=== PATIENT | female | born 1985 | race Caucasian/White ===

== ENCOUNTER 2016-09-19 10:33 | Emergency (ER) | payer OTHER ==
--- NOTE | 2016-09-19 11:01 | UC ---
Abdominal Pain Female HPI - HPI Summary HPI Summary: SUDDEN ONSET OF CRAMPY LOWER ABDOMINAL PAIN AND MILD NAUSEA THIS MORNING. WOKE HER FROM SLEEP. PAIN COMES IN WAVES. HAS HAD SEVERAL EPISODES OF LOOSE STOOLS THIS MORNING ASSOCIATED WITH THE PAIN. HAS H/O IBS BUT DID NOT EAT ANY TRIGGER FOODS. NO FEVER. LMP 2 WEEKS AGO WAS NORMAL. PT IS IN TEARS AND LEANING OVER HOLDING HER BELLY. - History of Current Complaint Chief Complaint: UCAbdominalPain Stated Complaint: ABDOMINAL PAIN Time Seen by Provider: 09/19/16 10:52 Hx Obtained From: Patient Hx Last Menstrual Period: 09/10/16 Onset/Duration: Sudden Onset, Lasting Hours, Still Present Timing: Intermittent Episodes Lasting: Severity Initially: Moderate Severity Currently: Moderate Pain Intensity: 8 Pain Scale Used: 0-10 Numeric Location: Suprapubic Radiates: No Character: Cramping Aggravating Factor(s): Nothing Alleviating Factor(s): Nothing Associated Signs and Symptoms: Positive: Nausea, Diarrhea. Negative: Back Pain , Constipation, Blood in Stool, Urinary Symptoms, Vaginal Bleeding, Vaginal Discharge, Vomiting Allergies/Adverse Reactions: Allergies Allergy/AdvReac Type Severity Reaction Status Date / Time Naproxen Allergy Rash Verified 09/19/16 10:39 minicycline Allergy joint Uncoded 09/19/16 10:38 swelling Home Medications: Home Medications Drospirenone-Ethinyl Estradiol [Ocella 3-0.03 mg] 09/19/16 [History] Levothyroxine TAB* [Synthorid 112 MCG TAB*] 112 mcg PO 0800 09/19/16 [History Confirmed 09/19/16] PMH/Surg Hx/FS Hx/Imm Hx Endocrine History: Hypothyroidism - Surgical History Surgical History: None - Family History Known Family History: Positive: Hypertension, Diabetes - Social History Alcohol Use: Rare Substance Use Type: None Smoking Status (MU): Never Smoked Tobacco Review of Systems Constitutional: Negative Respiratory: Negative Cardiovascular: Negative Gastrointestinal: Abdominal Pain, Diarrhea, Nausea Genitourinary: Negative All Other Systems Reviewed And Are Negative: Yes Physical Exam Triage Information Reviewed: Yes Appearance: Well-Nourished, Pain Distress - MODERATE. PT IN TEARS Vital Signs: Initial Vital Signs Temp 98.6 F 09/19/16 10:40 Pulse 93 09/19/16 10:40 Resp 22 07/30/17 10:40 BP 115/56 09/19/16 10:40 Pulse Ox 99 09/19/16 10:40 Vital Signs Reviewed: Yes Eyes: Positive: Conjunctiva Clear ENT: Positive: Hearing grossly normal Neck: Positive: Supple Respiratory Exam: Normal Cardiovascular Exam: Normal Abdomen Description: Positive: Soft, Other: - TENDER LOWER ABDOMEN. NO REBOUND, RIGIDITY OR GUARDING. Negative: CVA Tenderness (R), CVA Tenderness (L), Distended, Guarding Bowel Sounds: Positive: Present Musculoskeletal: Positive: No Edema Neurological: Positive: Alert Psychological: Positive: Age Appropriate Behavior Skin: Negative: rashes Diagnostics - Laboratory Diagnostic Studies Completed/Ordered: URINE DIP UNREMARKABLE. URINE HCG NEGATIVE Abd Pain Female Course/Dx - Differential Dx/Diagnosis Provider Diagnoses: LOWER ABDOMINAL PAIN - Physician Notification/Consults Discussed Care of Patient With: John Rodrigues - [place] [facility] [place] [facility] [place] Time Discussed With Above Provider: 11:10 Instructed by Provider To: Will See In ED Discharge - Discharge Plan Condition: Stable Disposition: AGAINST MEDICAL ADVICE Referrals: Ezra Lee MD [Primary Care Provider] -
[2016-09-19 11:15] VITALS: BP 129/78
== END 2016-09-19 11:11 | disposition left against medical advice (07) ==
LOC: UCEAST 10:33
DX: R10.30 Lower abdominal pain, unspecified (principal); Z32.02 Encounter for pregnancy test, result negative; E03.9 Hypothyroidism, unspecified; Z88.6 Allergy status to analgesic agent; Z88.3 Allergy status to other anti-infective agents
CPT/HCPCS: 81003; 84702; 99212; G0463

== ENCOUNTER → 2016-09-19 11:42 | Emergency (ER) | payer OTHER ==
[~2016-09-19 11:42] MED LIST: Iohexol 300* (CONTRAST) 10 ML SDV IV ONE; LORazepam TAB(*) 0.5 MG PO ONE; NS 0.9% 1000 ML* 1,000 ML IV ONE
[2016-09-19 14:00] LABS: Urine Bilirubin Negative (Negative); Urine Glucose Negative (Negative); Urine Nitrite Negative (Negative)
[2016-09-19 14:02] LABS: Hematocrit 42 % (35-47); Hemoglobin 13.7 g/dl (12.0-16.0); Mean Corpuscular HGB Conc 33 g/dl (31-36); Mean Corpuscular Hemoglobin 30 pg (27-31); Mean Corpuscular Volume 92 fL (80-97); Mean Platelet Volume 10 um3 (7.4-10.4); Red Blood Count 4.58 10^6/ul (4.0-5.4); Red Cell Distribution Width 13 % (10.5-15); White Blood Count 13.3 10^3/ul (3.5-10.8)
[2016-09-19 14:10] LABS: ALT 11 U/L (7-52); AST 13 U/L (13-39); Albumin 3.9 g/dL (3.2-5.2); Alkaline Phosphatase 47 U/L (34-104); Anion Gap 8 mmol/L (2-11); BUN/Creatinine Ratio 15.1 (8-20); Blood Urea Nitrogen 13 mg/dL (6-24); C Reactive Protein 10.01 mg/L (< 5.00); CO2 Carbon Dioxide 22 mmol/L (22-32); Calcium 8.3 mg/dL (8.6-10.3); Chloride 104 mmol/L (101-111); Globulin 2.8 g/dL (2-4); Glucose 116 mg/dL (70-100); Lipase 19 U/L (11.0-82.0); Potassium 3.8 mmol/L (3.5-5.0); Sodium 134 mmol/L (133-145); Total Protein 6.7 g/dL (6.4-8.9)
--- NOTE | 2016-09-19 16:10 | RAD ---
CLINICAL HISTORY: Left greater than right lower abdominal pain with nausea and diarrhea. COMPARISON: None TECHNIQUE: Contrast enhanced CT examination of the abdomen and pelvis from the lung bases through the initial tuberosities. The patient received 88 mL Omnipaque 300 intravenously prior to imaging.The patient received oral contrast as well prior to imaging. FINDINGS: VISUALIZED LUNG BASES: The visualized lung bases are grossly clear. There is no pleural effusion. ABDOMEN AND PELVIS: The liver, spleen, pancreas and adrenal glands are grossly normal in appearance. The gallbladder is normal. At the left kidney there is a 6 mm hypoattenuating focus that cannot be characterized further on this CT examination. Otherwise the kidneys are normal in appearance without focal mass, calcification or signs of hydronephrosis. The oral contrast has progressed as far as the distal colon. The diminutive, partially contrast-filled appendix is identified in the right lower quadrant (axial image 49 and coronal image 32). At the low midline abdomen there are mildly dilated loops of small bowel measuring up to 2.5 cm in diameter that exhibited a mild degree of wall thickening up to 4 mm (for example image 67). Better depicted on the coronal plane images, there is the appearance of mild tethering of the mesenteric root of these involve loops of small bowel (image 24). There is no gross retroperitoneal or mesenteric lymphadenopathy. There is trace ascites in the pelvis adjacent to these bowel loops. The pelvic viscera is normal in appearance. The abdominal aorta and iliac arteries are normal in course and diameter. There are no sinister bone lesions. IMPRESSION: CT findings are most consistent with distal ileitis. Infectious or inflammatory etiologies are considered most likely.
[2016-09-19 17:03] VITALS: BP 110/59
--- NOTE | 2016-09-19 18:36 | ED ---
Jhon Catalan Thomas, scribed for Garrett Allred MD on 09/19/16 at 1316 . Abdominal Pain/Female - HPI Summary HPI Summary: The pt is a 30 y/o F referred from [facility] [place], [place] and presenting to the ED c/o intermittent lower abd pain that began today at 05:00 when she woke up. She describes the pain as cramping and sharp. The pain radiates upward and into her back bilaterally. The pain is rated 8/10 at maximum and 4/10 at baseline. Pt additionally c/o cramping, nausea, lightheadedness, and diarrhea (light brown and watery). Pt denies vomiting, bloody stool, stool with mucus, fevers, and chills. For the past year she has been seeing her PCP for IBS. She denies a similar episode of this magnitude in the past. She has not eaten alcohol, coffee , and diary recently, which has made her feel better. PMHx: IBS, thyroid cancer (2010). PSHx: thyroidectomy. SHx: no smoking, occasional alcohol, no illicit drugs. FHx: HTN, HLD, ulcerative colitis. She recently travelled to [place] 2-3 weeks ago. She has not recently had Abx use. She denies recent sick contacts. She lives with two roommates. LNMP 2 weeks ago. - History of Current Complaint Chief Complaint: EDAbdPain Stated Complaint: ABD PAIN Time Seen by Provider: 09/19/16 13:07 Hx Obtained From: Patient Hx Last Menstrual Period: 09/10/16 Onset/Duration: Sudden Onset - when she woke up, Lasting Hours - 05:00 today, Still Present Timing: Intermittent Episode Lasting Severity Currently: Moderate Pain Intensity: 8 Pain Scale Used: 0-10 Numeric Location: Other - Lower Radiates to: Back - bilatearlly, Other - "upward" Character: Sharp, Cramping Aggravating Factor(s): Nothing Alleviating Factor(s): Nothing Associated Signs and Symptoms: Positive: Nausea, Diarrhea - loose, watery, Other : - POS: cramping, lightheadedness; NEG: stool with mucus, chills. Negative: Fever, Blood in Stool Allergies/Adverse Reactions: Allergies Allergy/AdvReac Type Severity Reaction Status Date / Time Naproxen Allergy Rash Verified 09/19/16 10:39 minicycline Allergy joint Uncoded 09/19/16 10:38 swelling PMH/Surg Hx/FS Hx/Imm Hx Previously Healthy: No Cardiovascular History: Denies: Hx Congestive Heart Failure, Hx Hypertension, Hx Pacemaker/ICD, Other Cardiovascular Problems/Disorders Respiratory History: Denies: Hx Asthma, Hx Chronic Obstructive Pulmonary Disease (COPD), Other Respiratory Problems/Disorders GI History: Reports: Other GI Disorders - Hx IBS - Cancer History Cancer Type, Location and Year: Thyroid cancer (2010) - Surgical History Surgery Procedure, Year, and Place: thyroidectomy Infectious Disease History: No Infectious Disease History: Reports: Traveled Outside the [place] in Last 30 Days - [facility] Denies: Hx Clostridium Difficile, Hx Hepatitis, Hx Human Immunodeficiency Virus (HIV), Hx of Known/Suspected MRSA, Hx Shingles, Hx Tuberculosis, Hx Known/ Suspected VRE, Hx Known/Suspected VRSA - Family History Known Family History: Positive: Hypertension, Diabetes, Other - POS: ulcerative colitis, HLD. - Social History Alcohol Use: Rare Substance Use Type: Reports: None Hx Tobacco Use: No Smoking Status (MU): Never Smoked Tobacco Review of Systems Constitutional: Negative Negative: Fever, Chills Eyes: Negative ENT: Negative Cardiovascular: Negative Respiratory: Negative Positive: Abdominal Pain - intermittent, lower, began this AM at 05:00, cramping and sharp in quality, 8/10 at maximum, Diarrhea - loose, watery, Nausea , Other - POS: cramping; NEG: bloody stool, stool with mucus Genitourinary: Negative Musculoskeletal: Negative Skin: Negative Neurological: Other - POS: lightheadedness Psychological: Normal All Other Systems Reviewed And Are Negative: Yes Physical Exam - Summary Physical Exam Summary: VITAL SIGNS: Reviewed. GENERAL: Patient is a well-developed and nourished female who is lying comfortable in the stretcher. ~Patient is not in any acute respiratory distress. HEAD AND FACE: Normocephalic and atraumatic. EYES: PERRLA, EOMI x 2, No injected conjunctiva. EARS: Hearing grossly intact. Ear canals and tympanic membranes are WNL. MOUTH: Oropharynx within normal limits. NECK: Supple, trachea is midline, no adenopathy, no JVD. CHEST: Symmetric, no tenderness at palpation LUNGS: Clear to auscultation bilaterally. No wheezing or crackles. CVS: RRR, S1 and S2 present, no murmurs or gallops appreciated. ABDOMEN: Bilateral lower abdominal tenderness. Soft. No signs of distention. Positive bowel sounds. No rebound no guarding, and no masses palpated. No abdominal bruit or pulsations. EXTREMITIES: FROM in all major joints, no edema, no cyanosis or clubbing. NEURO: Alert and oriented x 3. No acute neurological deficits. Speech is normal. SKIN: Dry and warm Triage Information Reviewed: Yes Vital Signs On Initial Exam: Initial Vitals Temp Pulse Resp BP Pulse Ox 97.8 F 80 16 130/72 100 09/19/16 11:48 09/19/16 11:48 09/19/16 11:48 09/19/16 11:48 09/19/16 11:48 Vital Signs Reviewed: Yes - Jay Coma Scale Coma Scale Total: 15 Diagnostics - Vital Signs Vital Signs Temp Pulse Resp BP Pulse Ox 09/19/16 11:48 97.8 F 80 16 130/72 100 - Laboratory Lab Results: Lab Results 09/19/16 09/19/16 09/19/16 Range/Units 13:28 13:28 13:28 WBC 13.3 H (3.5-10.8) 10^3/ul RBC 4.58 (4.0-5.4) 10^6/ul Hgb 13.7 (12.0-16.0) g/dl Hct 42 (35-47) % MCV 92 (80-97) fL MCH 30 (27-31) pg MCHC 33 (31-36) g/dl RDW 13 (10.5-15) % Plt Count 264 (150-450) 10^3/ul MPV 10 (7.4-10.4) um3 Neut % (Auto) 89.1 H (38-83) % Lymph % (Auto) 4.8 L (25-47) % [place] % (Auto) 5.3 (1-9) % Eos % (Auto) 0.4 (0-6) % Baso % (Auto) 0.4 (0-2) % Absolute Neuts (auto) 11.9 H (1.5-7.7) 10^3/ul Absolute Lymphs (auto) 0.6 L (1.0-4.8) 10^3/ul Absolute Monos (auto) 0.7 (0-0.8) 10^3/ul Absolute Eos (auto) 0.1 (0-0.6) 10^3/ul Absolute Basos (auto) 0 (0-0.2) 10^3/ul Absolute Nucleated RBC 0 10^3/ul Nucleated RBC % 0 Sodium 134 (133-145) mmol/L Potassium 3.8 (3.5-5.0) mmol/L Chloride 104 (101-111) mmol/L Carbon Dioxide 22 (22-32) mmol/L Anion Gap 8 (2-11) mmol/L BUN 13 (6-24) mg/dL Creatinine 0.86 (0.51-0.95) mg/dL Est GFR ( Amer) 99.0 (>60) Est GFR (Non-Af Amer) 77.0 (>60) BUN/Creatinine Ratio 15.1 (8-20) Glucose 116 H (70-100) mg/dL Lactic Acid (0.5-2.0) mmol/L Calcium 8.3 L (8.6-10.3) mg/dL Total Bilirubin 0.40 (0.2-1.0) mg/dL AST 13 (13-39) U/L ALT 11 (7-52) U/L Alkaline Phosphatase 47 (34-104) U/L C-Reactive Protein 10.01 H (< 5.00) mg/L Total Protein 6.7 (6.4-8.9) g/dL Albumin 3.9 (3.2-5.2) g/dL Globulin 2.8 (2-4) g/dL Albumin/Globulin Ratio 1.4 (1-3) Lipase 19 (11.0-82.0) U/L Beta HCG, Quant < 0.60 mIU/mL Urine Color Colorless Urine Appearance Clear Urine pH 7.0 (5-9) Ur Specific [place] 1.001 L (1.010-1.030) Urine Protein Negative (Negative) Urine Ketones Negative (Negative) Urine Blood Negative (Negative) Urine Nitrate Negative (Negative) Urine Bilirubin Negative (Negative) Urine Urobilinogen Negative (Negative) Ur Leukocyte Esterase Negative (Negative) Urine Glucose Negative (Negative) 09/19/16 Range/Units 13:28 WBC (3.5-10.8) 10^3/ul RBC (4.0-5.4) 10^6/ul Hgb (12.0-16.0) g/dl Hct (35-47) % MCV (80-97) fL MCH (27-31) pg MCHC (31-36) g/dl RDW (10.5-15) % Plt Count (150-450) 10^3/ul MPV (7.4-10.4) um3 Neut % (Auto) (38-83) % Lymph % (Auto) (25-47) % [place] % (Auto) (1-9) % Eos % (Auto) (0-6) % Baso % (Auto) (0-2) % Absolute Neuts (auto) (1.5-7.7) 10^3/ul Absolute Lymphs (auto) (1.0-4.8) 10^3/ul Absolute Monos (auto) (0-0.8) 10^3/ul Absolute Eos (auto) (0-0.6) 10^3/ul Absolute Basos (auto) (0-0.2) 10^3/ul Absolute Nucleated RBC 10^3/ul Nucleated RBC % Sodium (133-145) mmol/L Potassium (3.5-5.0) mmol/L Chloride (101-111) mmol/L Carbon Dioxide (22-32) mmol/L Anion Gap (2-11) mmol/L BUN (6-24) mg/dL Creatinine (0.51-0.95) mg/dL Est GFR ( Amer) (>60) Est GFR (Non-Af Amer) (>60) BUN/Creatinine Ratio (8-20) Glucose (70-100) mg/dL Lactic Acid 1.6 (0.5-2.0) mmol/L Calcium (8.6-10.3) mg/dL Total Bilirubin (0.2-1.0) mg/dL AST (13-39) U/L ALT (7-52) U/L Alkaline Phosphatase (34-104) U/L C-Reactive Protein (< 5.00) mg/L Total Protein (6.4-8.9) g/dL Albumin (3.2-5.2) g/dL Globulin (2-4) g/dL Albumin/Globulin Ratio (1-3) Lipase (11.0-82.0) U/L Beta HCG, Quant mIU/mL Urine Color Urine Appearance Urine pH (5-9) Ur Specific [place] (1.010-1.030) Urine Protein (Negative) Urine Ketones (Negative) Urine Blood (Negative) Urine Nitrate (Negative) Urine Bilirubin (Negative) Urine Urobilinogen (Negative) Ur Leukocyte Esterase (Negative) Urine Glucose (Negative) Result Diagrams: 09/19/16 13:28 09/19/16 13:28 Lab Statement: Any lab studies that have been ordered have been reviewed, and results considered in the medical decision making process. - CT CT Abd/Pel CT Interpretation: Positive (See Comments) - CT findings are most consistent with distal ileitis. Infectious or inflammatory etiologies are considered most likely. CT Interpretation Completed By: Radiologist - EKG 14:23 Cardiac Rate: NL - 74 BPM EKG Interpretation: Sinus rhythm with no ST elevations Re-Evaluation - Re-Evaluation First Eval Re-Evaluation Time: 16:31 Change: Improved Abdominal Pain Fem Course/Dx - Course Course Of Treatment: The pt is a 30 y/o F referred from [facility] [place], [place] and presenting to the ED c/o intermittent lower abd pain that began today at 05:00 when she woke up. She describes the pain as cramping and sharp. The pain radiates upward and into her back bilaterally. The pain is rated 8/10 at maximum and 4/10 at baseline. Pt additionally c/o cramping, nausea, lightheadedness, and diarrhea ( light brown and watery). Pt denies vomiting, bloody stool, stool with mucus, fevers, and chills. For the past year she has been seeing her PCP for IBS. She denies a similar episode of this magnitude in the past. She has not eaten alcohol, coffee, and diary recently, which has made her feel better. PMHx: IBS, thyroid cancer (2010). PSHx: thyroidectomy. SHx: no smoking, occasional alcohol , no illicit drugs. FHx: HTN, HLD, ulcerative colitis. She recently travelled to [place] 2-3 weeks ago. She has not recently had Abx use. She denies recent sick contacts. She lives with two roommates. LNMP 2 weeks ago. Test results showed a WBC of 13.1, Glucose 116, CRP 10.1. UA was negative for UTI. CT Abd/ Pel reveals CT findings are most consistent with distal ileitis. Infectious or inflammatory etiologies are considered most likely. In the ED course the patient was hydrated with IV fluids. The patient was given Ativan for anxiety and after hydration the patient feels better. She has not been able to give any stool samples. She was observed in the ED for a couple hours and the symptoms did not return. Therefore, the patient will be discharged home with follow-up to PCP. She is hemodynamically stable and alert and oriented x3. I discussed all the findings and test results with the patient. Patient was instructed to return to the emergency room immediately if any of the symptoms return or worsens. They were explained the possibility of an early abdominal pathology which was not detected at this time despite the physical exam and testing. They understand and agree. Abdominal exam before discharge: Soft, NT. No signs of distention. BS present. No rebound no guarding, and no masses palpated. Patient is alert and oriented and hemodynamically stable. Patient is to follow up with primary care physician in the next 2 to 3 days. Patient agree and understands. - Diagnoses Differential Diagnosis: Positive: Appendicitis, Bowel Obstruction, Constipation , Diverticulitis, Irritable Bowel Syndrome, Pancreatitis, Renal Colic, Urinary Tract Infection Provider Diagnoses: Nausea, vomiting and diarrhea, Abdominal pain Discharge - Discharge Plan Condition: Stable Disposition: HOME Patient Education Materials: Abdominal Pain (ED), Acute Nausea and Vomiting (ED ), Acute Diarrhea (ED) Referrals: Ezra Lee MD [Primary Care Provider] - 3 Days The documentation as recorded by the Jhon rodriguez Thomas accurately reflects the service I personally performed and the decisions made by me, Garrtet Allred MD.
--- NOTE | 2016-09-20 09:40 | PN ---
Progress Note - Progress Note Date of Service: 09/19/16 Note: Patient diagnosed with abdominal pain. stool culture results obtained and negative for c diff. no further action needed at this time.
== END | disposition home or self-care (01) ==
LOC: ED 11:42
DX: R10.30 Lower abdominal pain, unspecified (principal); R11.2 Nausea with vomiting, unspecified; R19.7 Diarrhea, unspecified; Z88.8 Allergy status to other drugs, medicaments and biological substances; Z32.02 Encounter for pregnancy test, result negative
CPT/HCPCS: 36415; 74177; 80053; 81003; 83605; 83630; 83690; 84702; 85025; 86140; 87493; 93005; 99282; A9270-GY; Q9967